=== PATIENT | male | born 1970 | race Caucasian/White ===

== ENCOUNTER → 2018-10-05 | Outpatient (CLI) | payer OTHER ==
[~2018-10-05] MED LIST: ISOVUE-370 76% 100ML VIAL (Q9967) As Ordered ONE
--- NOTE | 2018-10-05 15:21 | REP ---
CT of the abdomen and pelvis without and with IV contrast, multiphase scanning, CT urogram protocol: Comparison is 09/11/2013. The previous left ureteral calculus is no longer present. There are no ureteral calculi on the left on the right on the study today. There are no renal calculi. There are no bladder calculi. There is no hydronephrosis. There is no perinephric stranding. There are no solid or cystic renal masses. No bladder masses are identified. The visualized lung bobo are unremarkable. The hepatic parenchyma, gallbladder, pancreas and spleen are unremarkable. The adrenals are unremarkable. Abdominal aorta is unremarkable. There is no retroperitoneal adenopathy or mass. The bowel is unremarkable. There is focal induration in the mid mesentery, unchanged, compatible with panniculitis. Pelvis: The terminal ileum and appendix are unremarkable. The bladder is unremarkable. There is no adenopathy or ascites. The pelvic bowel loops are unremarkable. Impression: There are no renal, ureteral or bladder calculi. There is no hydronephrosis. There are no solid or cystic renal masses. 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 Otherwise, negative CT of the abdomen and pelvis Electronically Signed by Zaheer Leigh MD 10/05/2018 03:12 P
== END ==
LOC: M RAD 13:35
PROVIDERS: ATTEND Urology Pediatric Urology
DX: Z87.442 Personal history of urinary calculi (principal); M79.3 Panniculitis, unspecified
CPT/HCPCS: 74178; Q9967

== ENCOUNTER 2020-10-14 07:21 | Day surgery (SDC) | payer OTHER ==
[~2020-10-14] VITALS: Ht 167.6 cm; Wt 111.1 kg
[~2020-10-14 07:21] MED LIST changes: +CELE1CAP4 PO; -ISOVUE-370 76% 100ML VIAL (Q9967) As Ordered ONE; +NS 1,000 ML IV ONE; +PANT40TA29 PO
--- OUTSIDE RECORDS SUMMARY | 2020-10-14 07:26 | CCD | Continuity of Care Document ---
Author Author John ULRICH M.D. Organization Unknown Address [address] [place] [address] Phone [phone] Care Team Providers Care Liquid Yeast Supervisor Name Role Phone Erasto Wall AUTM [phone] Problems Active Problems Provider Date Screening for malignant neoplasm of colon Rafa lawson M.D. Onset: 09/29/2020 Social History Type Date Description Comments Sex Unknown ETOH Use Occasionally Tobacco Use Start: Unknown Patient has never smoked Allergies, Adverse Reactions, Alerts Description No Known Drug Allergies Medications Active Medications SIG Qnty Indications Ordering Provide r Date Suprep Bowel Prep Kit 17.5-3.13-1.6GM/177ML Solution use as directed 354ml Rafa Ulrich M.D. 09/29/2020 Celecoxib 200mg Capsules Unknown Pantoprazole Sodium 40mg Tablets DR Unknown Immunizations Description No Information Available Vital Signs Date Vital Result Comment 09/29/2020 10:38am Height 66 inches 5'6" Weight 244.00 lb BP Systolic 130 mmHg BP Diastolic 89 mmHg Heart Rate 70 /min BMI (Body Mass Index) 39.4 kg/m2 Weight 110.678 kg Body Temperature 97.3 F Results Description No Information Available Procedures Description No Information Available Medical Devices Description No Information Available Encounters Description No Information Available Assessments Date Code Description Provider 09/29/2020 Z12.11 Screening for malignant neoplasm of colon Rafa Ulrich M.D. 09/29/2020 K21.9 Gastroesophageal reflux disease Rafa Ulrich M.D. Plan of Treatment Future Appointment(s):* 10/14/2020 8:45 am - Rafa Ulrich M.D. at Main Office 09/29/2020 - Rafa Ulrich M.D.* Z12.11 Screening for malignant neoplasm of colon* Comments:* 49 yo wm who presents for a screening colonoscopy. No c/o abdominal pain, weight loss, change in bowel habits, or rectal bleeding. No family h/o colon cancer. No h/o chest pain, or sob. Pt also states he has a 15 yr h/o chronic heartburn. He is on a ppi med.Plan:1.Schedule patient for a colonoscopy + egd.2.Informed consent given to the patient.3.Pt. advised to stop aspirin,plavix, and anticoagulants at least 3 to 7 days prior to the procedure. * K21.9 Gastroesophageal reflux disease* Comments:* As above. Functional Status Description No Information Available Mental Status Description No Information Available Referrals Refer to Reason for Referral Status Appt Date Rafa Ulrich M.D. Created [address] [place] [id number] [phone]
--- OUTSIDE RECORDS SUMMARY | 2020-10-14 07:26 | CCD | Continuity of Care Document ---
Author Author John ULRICH M.D. Organization Unknown Address [address] [place] [address] Phone [phone] Care Team Providers Care Telephone Interceptor Operator Name Role Phone Erasto Wall AUTM [phone] Problems Active Problems Provider Date Screening for [...] Medical Devices Description No Information Available Encounters Type Date Location Provider Dx Diagnosis Office Visit 09/29/2020 10:15a Main Office Rafa Ulrich M.D. Z 12.11 Encounter for screening for malignant neoplasm of colon K21.9 Gastro-esophageal reflux dis ease without esophagitis Assessments Date Code Description Provider 09/29/2020 Z12.11 Screening for malignant neoplasm of colon Rafa Ulrich M.D. 09/29/2020 K21.9 Gastroesophageal reflux disease Rafa Ulrich M.D. Plan of Treatment Future Appointment(s):* 10/07/2020 6:00 am - Ronald at Main Office * 10/14/2020 8:45 am - Rafa Ulrich M.D. [...] Status Appt Date Rafa Ulrich M.D. Created [address] [place] [address] [phone]
--- OUTSIDE RECORDS SUMMARY | 2020-10-14 07:27 | CCD ---
Author Author [facility] Organization [facility] Address Unknown Phone Unavailable Care Team Providers Care Tooling Supervisor Name Role Phone Madison Ulrich MD Unavailable Unavailable Madison Ulrich MD Unavailable Unavailable Madison Ulrich MD Unavailable Unavailable Madison Ulrich MD Unavailable Unavailable Madison Ulrich MD Unavailable Unavailable Madison Ulrich MD Unavailable Unavailable Madison Ulrich MD Unavailable Unavailable Madison Ulrich MD Unavailable Unavailable Madison Ulrich MD Unavailable Unavailable Madison Ulrich MD Unavailable Unavailable Madison Ulrich MD Unavailable Unavailable Madison Ulrich MD Unavailable Unavailable Madison Ulrich MD Unavailable Unavailable Madison Ulrich MD Unavailable Unavailable Madison Ulrich MD Unavailable Unavailable Madison Ulrich MD Unavailable Unavailable Madison Ulrich MD Unavailable Unavailable Madison Ulrich MD Unavailable Unavailable Madison Ulrich MD Unavailable Unavailable Madison Ulrich MD Unavailable Unavailable Madison Ulrich MD Unavailable Unavailable Madison Ulrich MD Unavailable Unavailable Madison Ulrich MD Unavailable Unavailable Madison Ulrich MD Unavailable Unavailable Madison Ulrich MD Unavailable Unavailable Madison Ulrich MD Unavailable Unavailable Madison Ulrich MD Unavailable Unavailable Madison Ulrich MD Unavailable Unavailable Madison Ulrich MD Unavailable Unavailable Madison Ulrich MD Unavailable Unavailable Madison Ulrich MD Unavailable Unavailable Madison Ulrich MD Unavailable Unavailable Mojgan, S Rafa MD Unavailable Unavailable Mojgan, S Rafa MD Unavailable Unavailable Mojgan, S Rafa MD Unavailable Unavailable Mojgan, S Rafa MD Unavailable Unavailable Mojgan, S Rafa MD Unavailable Unavailable Mojgan, S Rafa MD Unavailable Unavailable Mojgan, S Rafa MD Unavailable Unavailable Mojgan, S Rafa MD Unavailable Unavailable Mojgan, S Rafa MD Unavailable Unavailable Mojgan, S Rafa MD Unavailable Unavailable Mojgan, S Rafa MD Unavailable Unavailable Mojgan, S Rafa MD Unavailable Unavailable Mojgan, S Rafa MD Unavailable Unavailable Mojgan, S Rafa MD Unavailable Unavailable Mojgan, S Rafa MD Unavailable Unavailable Mojgan, S Rafa MD Unavailable Unavailable Mojgan, S Rafa MD Unavailable Unavailable Mojgan, S Rafa MD Unavailable Unavailable Re-disclosure Warning The records that you are about to access may contain information from federally-assisted alcohol or drug abuse programs. If such information is present, then the following federally mandated warning applies: This information has been disclosed to you from records protected by federal confidentiality rules (42 CFR part 2). The federal rules prohibit you from making any further disclosure of this information unless further disclosure is expressly permitted by the written consent of the person to whom it pertains or as otherwise permitted by 42 CFR part 2. A general authorization for the release of medical or other information is NOT sufficient for this purpose. The Federal rules restrict any use of the information to criminally investigate or prosecute any alcohol or drug abuse patient.The records that you are about to access may contain highly sensitive health information, the redisclosure of which is protected by Article 27-F of the [facility] Public Health law. If you continue you may have access to information: Regarding HIV / AIDS; Provided by facilities licensed or operated by the [facility] Office of Mental Health; or Provided by the [facility] Office for People With Developmental Disabilities. If such information is present, then the following [facility] mandated warning applies: This information has been disclosed to you from confidential records which are protected by state law. State law prohibits you from making any further disclosure of this information without the specific written consent of the person to whom it pertains, or as otherwise permitted by law. Any unauthorized further disclosure in violation of state law may result in a fine or residential sentence or both. A general authorization for the release of medical or other information is NOT sufficient authorization for further disc losure. Encounters Encounter Providers Location Date Indications Data Source(s ) Outpatient Attender: Rafa Ulrich MD Main Office 09/29/2020 09:15:00 AM EST [facility] ([facility]) Medications Medication Brand Name Start Date Product Form Dose Route Admi nistrative Instructions Pharmacy Instructions Status Indications Reaction Description Data Source(s) Suprep Bowel Prep Kit Suprep Bowel Prep Kit 09/29/2020 12:00:00 AM EST active [facility]) Insurance Providers Payer name Policy type / Coverage type Policy ID Covered alliance party ID Covered alliance party's relationship to blevins Policy Blevins Plan Information [facility] HUMAN [id number] SP [id number] ANSI-Commercial [id number] [facility] [id number] SP [id number] ACTIVE DUTY [id number] SP [id number] [facility] HUMANA - O/P [id number] 18 [id number] N REGIONAL CLAIMS [employer] [id number] 18 [id number] [facility] P [id number] S [id number] [facility] [place] P [id number] S [id number] Problems, Conditions, and Diagnoses Code Display Name Description Problem Type Effective Dates Data Source(s) 613795102 Screening for malignant neoplasm of colo n Screening for malignant neoplasm of colon Problem 09/29/2020 12:00:00 AM EST [facility]) Results ID Date Data Source [id number] 2020 09:32:00 AM EST [facility] Name Value Range Interpretation Code Description Data Sofia rce(s) Supporting Document(s) SARS coronavirus 2 RNA Not Detected [facility] [place] This lab was ordered by [facility] and reported by [facility]. Procedure Vital Signs ID Date Data Source UNK Name Value Range Interpretation Code Description Data Source(s) Body temperature 97.3 [degF] 97.3 [degF] [facility] ([facility]) Body weight 110.678 kg 110.678 kg [facility] Body mass index (BMI) [Ratio] 39.4 kg/m2 39.4 k g/m2 [facility]) Heart rate 70 /min 70 /min [facility]) Diastolic blood pressure 89 mm[Hg] 89 mm[Hg] [facility]) Systolic blood pressure 130 mm[Hg] 130 mm[Hg] M JOEL ([facility]) Body weight 244.00 [lb_av] 244.00 [lb_av] TOM T ([facility]) Body height 66 [in_i] 66 [in_i] [facility] 5[facility]"
--- NOTE | 2020-10-14 08:36 | ROOR ---
Patient Name: John Wisdom Procedure Date: 10/14/2020 8:20 AM Date of : 1970 Age: 50 Room: [facility] Gender: Male Note Status: Finalized Procedure: Upper Endoscopy + Biopsies Indications: Heartburn, Exclusion of Costa's esophagus Providers: Rafa Ulrich MD Referring MD: GUNNER MARTINO MD Requesting Provider: Medicines: Monitored Anesthesia Care Complications: No immediate complications. Procedure: Pre-Anesthesia Assessment: - The heart rate, respiratory rate, oxygen saturations, blood pressure, adequacy of pulmonary ventilation, and response to care were monitored throughout the procedure. The Endoscope was introduced through the mouth, and advanced to the second part of duodenum. The upper GI endoscopy was accomplished without difficulty. The patient tolerated the procedure well. Findings: The Z-line was irregular and was found 40 cm from the incisors. Multiple biopsies were obtained with cold forceps for evaluation to rule out Costa's Esophagus randomly at the gastroesophageal junction. A small hiatal hernia was present. Localized mild inflammation characterized by congestion (edema) and erosions was found in the gastric antrum. Biopsies were taken with a cold forceps for Helicobacter pylori testing. The exam of the duodenum was otherwise normal. Impression: - Z-line irregular, 40 cm from the incisors. - Small hiatal hernia. - Mucosal changes suspicious for gastritis. Biopsied. - Multiple biopsies were obtained at the gastroesophageal junction. - The examination was otherwise normal. Recommendation: - Patient has a contact number available for emergencies. The signs and symptoms of potential delayed complications were discussed with the patient. Return to normal activities tomorrow. Written discharge instructions were provided to the patient. - High fiber diet. - Discharge patient to home. - Follow an antireflux regimen. - Use Protonix (pantoprazole) 40 mg PO BID. - Return to referring physician. - Telephone GI clinic for pathology results in 1 week. - Return to referring physician. - The findings and recommendations were discussed with the patient. Procedure Code(s): --- Professional --- 21864, Esophagogastroduodenoscopy, flexible, transoral; with biopsy, single or multiple Diagnosis Code(s): --- Professional --- K22.8, Other specified diseases of esophagus K44.9, Diaphragmatic hernia without obstruction or gangrene K31.89, Other diseases of stomach and duodenum R12, Heartburn CPT copyright 2019 [employer]. All rights reserved. The codes documented in this report are preliminary and upon cpc coder review may be revised to meet current compliance requirements. Rafa Ulrich MD Rafa Ulrich MD 10/14/2020 8:35:35 AM Electronically signed by Rafa Ulrich MD Number of Addenda: 0 Note Initiated On: 10/14/2020 8:20 AM Estimated Blood Loss: Estimated blood loss: none.
--- NOTE | 2020-10-14 08:51 | ROOR ---
Patient Name: John Wisdom Procedure Date: 10/14/2020 8:20 AM Date of : 1970 Age: 50 Room: [facility] Gender: Male Note Status: Finalized Procedure: Total Colonoscopy to Cecum Indications: Screening for colorectal malignant neoplasm Providers: Rafa Ulrich MD Referring MD: GUNNER MARTINO MD Requesting Provider: Medicines: Monitored Anesthesia Care Complications: No immediate complications. Procedure: Pre-Anesthesia Assessment: - The heart rate, respiratory rate, oxygen saturations, blood pressure, adequacy of pulmonary ventilation, and response to care were monitored throughout the procedure. The Colonoscope was introduced through the anus and advanced to the cecum, identified by appendiceal orifice and ileocecal valve. The colonoscopy was performed without difficulty. The patient tolerated the procedure well. The quality of the bowel preparation was good. Findings: The perianal and digital rectal examinations were normal. Non-bleeding internal hemorrhoids were found during retroflexion. The hemorrhoids were small and Grade I (internal hemorrhoids that do not prolapse). Multiple small and large-mouthed diverticula were found in the recto-sigmoid colon, sigmoid colon and descending colon. The exam was otherwise without abnormality on direct and retroflexion views. Impression: - Non-bleeding internal hemorrhoids. - Diverticulosis in the recto-sigmoid colon, in the sigmoid colon and in the descending colon. - The examination was otherwise normal on direct and retroflexion views. - No specimens collected. - The exam was otherwise normal to the cecum. Recommendation: - Patient has a contact number available for emergencies. The signs and symptoms of potential delayed complications were discussed with the patient. Return to normal activities tomorrow. Written discharge instructions were provided to the patient. - High fiber diet. - Discharge patient to home. - Continue present medications. - Repeat colonoscopy in 10 years for screening purposes. - Return to referring physician. - The findings and recommendations were discussed with the patient. Procedure Code(s): --- Professional --- 74152, Colonoscopy, flexible; diagnostic, including collection of specimen(s) by brushing or washing, when performed (separate procedure) Diagnosis Code(s): --- Professional --- Z12.11, Encounter for screening for malignant neoplasm of colon K64.0, First degree hemorrhoids K57.30, Diverticulosis of large intestine without perforation or abscess without bleeding CPT copyright 2019 [employer]. All rights reserved. The codes documented in this report are preliminary and upon mold mechanic review may be revised to meet current compliance requirements. Rafa Ulrich MD Rafa Ulrich MD 10/14/2020 8:51:03 AM Electronically signed by Rafa Ulrich MD Number of Addenda: 0 Note Initiated On: 10/14/2020 8:20 AM Estimated Blood Loss: Estimated blood loss: none.
[2020-10-14 09:15] VITALS: BP 131/82
[2020-10-14] MEDS ORDERED: propofoL 200 MG/20 ML VIAL As Ordered ONE (09:39)
[2020-10-14] MEDS ORDERED: fentaNYL 100 MCG/2 ML INJECTION (J3010) As Ordered ONE (09:39)
[2020-10-14] MEDS ORDERED: LIDOCAINE 2% 100MG/5ML SDV (FOR ANES.) As Ordered ONE (09:39)
== END 2020-10-14 09:18 | disposition home or self-care (01) ==
LOC: M OPP 07:21
PROVIDERS: ATTEND Internal Medicine Gastroenterology
DX: Z12.11 Encounter for screening for malignant neoplasm of colon (principal); R12 Heartburn; K64.0 First degree hemorrhoids; K57.30 Diverticulosis of large intestine without perforation or abscess without bleeding; D13.1 Benign neoplasm of stomach; K22.8 Other specified diseases of esophagus; K44.9 Diaphragmatic hernia without obstruction or gangrene; K31.89 Other diseases of stomach and duodenum; G47.30 Sleep apnea, unspecified; Z79.899 Other long term (current) drug therapy
CPT/HCPCS: 43239; 45378; 88305; 88342; J3010

== ENCOUNTER → 2022-04-08 | Outpatient (REF) | payer OTHER ==
[~2022-04-08] MED LIST changes: -NS 1,000 ML IV ONE
== END ==
LOC: M LAB REF 12:04
PROVIDERS: ATTEND Physician Assistant
DX: R68.83 Chills (without fever) (principal)

== ENCOUNTER 2022-10-01 07:40 | Emergency (ER) | payer OTHER ==
[~2022-10-01] VITALS: Ht 170.2 cm; Wt 112.0 kg
[2022-10-01] MEDS ORDERED: HYDR-4517 (07:49)
[2022-10-01] MEDS ORDERED: CLIN-250 (07:49)
[2022-10-01] MEDS ORDERED: KETOROLAC 30 MG/ML 1ML VIAL IV ONE (09:10)
[2022-10-01] MEDS ORDERED: methylPREDNISolone 125MG 2ML VIAL IV ONE (09:10)
[2022-10-01] MEDS ORDERED: ISOVUE-370 76% 100ML VIAL As Ordered ONE (09:43)
[2022-10-01 09:51] LABS: BASO % 0.2 % (0.0-1.0); EOS % 0.2 % (0.0-3.0); HEMATOCRIT 45.5 % (42.0-52.0); HEMOGLOBIN 15.9 g/dl (13.5-17.5); LYMPH # 1.6 10^3/uL (1.5-5.0); LYMPH % 17.3 % (24.0-44.0); MEAN CORPUSCULAR HEMOGLOBIN 32.2 pg (27.0-33.0); MEAN CORPUSCULAR HGB CONC 34.9 g/dl (32.0-36.5); MEAN CORPUSCULAR VOLUME 92.1 fl (80.0-96.0); MONO # 0.7 10^3/uL (0.0-0.8); MONO % 7.6 % (2.0-8.0); NEUTROPHILS # 6.7 10^3/uL (1.5-8.5); NEUTROPHILS % 74.4 % (36.0-66.0); PLATELET COUNT, AUTOMATED 187 10^3/uL (150-450); RED BLOOD COUNT 4.94 10^6/uL (4.30-6.10)
[2022-10-01 09:56] LABS: ERYTHROCYTE SEDIMENTATION RATE 6 mm/hr (0-20)
[2022-10-01] MEDS ORDERED: AMPICILLIN SOD/SULBACTAM SOD 1.5 GM in D5W MINI-BAG PLUS 50 ML IV ONE (10:50)
[2022-10-01] MEDS ORDERED: AMOX875T2 PO (10:53)
[2022-10-01] MEDS ORDERED: PRED20TA PO (10:53)
[2022-10-01 11:02] VITALS: BP 135/83
== END 2022-10-01 11:55 | disposition home or self-care (01) ==
LOC: M ED 07:40
DX: K12.2 Cellulitis and abscess of mouth (principal); K08.89 Other specified disorders of teeth and supporting structures; Z79.2 Long term (current) use of antibiotics; Z79.52 Long term (current) use of systemic steroids; Z79.899 Other long term (current) drug therapy
CPT/HCPCS: 70491; 80047; 83605; 85025; 85652; 86140; 96365; 96375; 99283; J0295; J1885; J2930

== ENCOUNTER 2024-08-06 11:13 | Emergency (ER) | payer OTHER ==
[~2024-08-06] VITALS: Ht 167.6 cm; Wt 230.0 kg
[~2024-08-06 11:13] MED LIST changes: +AMOX875T2 PO; +CLIN-250; +HYDR-4517; +PRED20TA PO
[2024-08-06 11:21] VITALS: TEMP 97.1
[2024-08-06 12:16] LABS: BASO % 0.3 % (0.0-1.0); EOS # 0.1 10^3/uL (0.0-0.5); EOS % 0.8 % (0.0-3.0); HEMATOCRIT 47.3 % (42.0-52.0); HEMOGLOBIN 16.9 g/dl (13.5-17.5); LYMPH # 1.9 10^3/uL (1.5-5.0); MEAN CORPUSCULAR HEMOGLOBIN 32.9 pg (27.0-33.0); MEAN CORPUSCULAR HGB CONC 35.7 g/dl (32.0-36.5); MONO # 0.5 10^3/uL (0.0-0.8); MONO % 8.6 % (2.0-8.0); NEUTROPHILS # 3.4 10^3/uL (1.5-8.5); NEUTROPHILS % 58.1 % (36.0-66.0); PLATELET COUNT, AUTOMATED 191 10^3/uL (150-450); RED BLOOD COUNT 5.14 10^6/uL (4.30-6.10); WHITE BLOOD COUNT 5.9 10^3/uL (4.0-10.0)
[2024-08-06 12:31] LABS: INR 1.05
[2024-08-06 12:50] LABS: LIPASE 35 U/L (12-53)
[2024-08-06 12:52] LABS: ALBUMIN 4.1 G/DL (3.2-5.2); ALKALINE PHOSPHATASE 84 U/L (40-129); ALT/SGPT 56 U/L (7.0-40); AST/SGOT 33 U/L (<34); BILIRUBIN,DIRECT 0.5 MG/DL (<0.4); BILIRUBIN,TOTAL 1.6 MG/DL (0.3-1.2); BLOOD UREA NITROGEN 13 MG/DL (9-23); CALCIUM LEVEL 9.7 MG/DL (8.5-10.1); CARBON DIOXIDE LEVEL 28 MMOL/L (20-31); CHLORIDE LEVEL 104 MMOL/L (98-107); CK-MB VALUE MASS < 1.0 NG/ML (<3.6); CREATININE FOR GFR 0.85 MG/DL (0.70-1.30); GLOMERULAR FILTRATION RATE > 60.0 (>56); GLUCOSE, FASTING 110 MG/DL (60-100); POTASSIUM SERUM 4.2 MMOL/L (3.5-5.1); SODIUM LEVEL 138 MMOL/L (136-145); TOTAL PROTEIN 7.5 G/DL (5.7-8.2)
[2024-08-06 12:56] LABS: CPK CREATINE PHOSPHOKINASE 94 U/L (46-171); MB/CK RELATIVE INDEX 1.06 (< OR =4)
[2024-08-06] MEDS ORDERED: ISOVUE-370 76% 100ML VIAL As Ordered ONE (13:19)
[2024-08-06 13:28] LABS: CK-MB VALUE MASS < 1.0 NG/ML (<3.6)
[2024-08-06 13:29] LABS: CPK CREATINE PHOSPHOKINASE 76 U/L (46-171); MB/CK RELATIVE INDEX 1.31 (< OR =4)
[2024-08-06] MEDS: FAMOTIDINE 20 MG TAB PO ONE (14:22)
[2024-08-06] MEDS: PANTOPRAZOLE 40MG VIAL IV ONE (14:22)
[2024-08-06] MEDS ORDERED: FAMO20TA PO (15:04)
[2024-08-06] MEDS ORDERED: SUCR1SS PO (15:04)
[2024-08-06 15:30] VITALS: BP 124/83; O2SAT 97
== END 2024-08-06 15:38 | disposition home or self-care (01) ==
LOC: M ED 11:13
DX: K21.9 Gastro-esophageal reflux disease without esophagitis (principal); K59.00 Constipation, unspecified; K44.9 Diaphragmatic hernia without obstruction or gangrene; Z79.2 Long term (current) use of antibiotics; Z79.52 Long term (current) use of systemic steroids; Z79.899 Other long term (current) drug therapy
CPT/HCPCS: 36415; 71045; 71260; 74177; 80048; 80076; 82550; 82553; 83690; 84484; 85025; 85610; 93005; 93041; 94760; 96374; 99285; J2470; Q9967

== ENCOUNTER → 2024-08-26 | Outpatient (CLI) | payer OTHER ==
[~2024-08-26] MED LIST changes: +FAMO20TA PO; +SUCR1SS PO
== END ==
LOC: M RAD 07:11
PROVIDERS: ATTEND Internal Medicine Gastroenterology
DX: R10.13 Epigastric pain (principal)
CPT/HCPCS: 78227; A9537